=== PATIENT | female | born 1975 | race Hispanic/Latino ===

== ENCOUNTER → 2019-09-29 | Outpatient (CLI) | payer OTHER ==
--- NOTE | 2019-09-29 13:16 | US ---
EXAM DESCRIPTION: Extremity,Lower RT Arteries: Ultrasound. CLINICAL HISTORY: CELLULITIS COMPARISON: Duplex ultrasound evaluation of the right lower extremity deep venous system on this visit. TECHNIQUE: Doppler evaluation of the right lower extremity arterial flow waveforms and velocities. FINDINGS: Arterial waveforms in the right lower extremity are multiphasic from the right common femoral artery through the right dorsalis pedis artery.. . Comments: Normal range of decreasing velocities proximal to distal. IMPRESSION: Doppler evaluation of right lower extremity arterial systems showing no evidence of significant atherosclerotic occlusive disease. Electronically signed by: Khris Victor MD 09/29/2019 1:15 PM CDT
--- NOTE | 2019-09-29 13:19 | US ---
EXAM DESCRIPTION: Venous,Lower Extremity RT: ULTRASOUND. CLINICAL HISTORY: SEVERE SWELLING COMPARISON: Doppler ultrasound of right lower extremity arterial system on this visit. TECHNIQUE: Herrera-scale and doppler sonographic evaluation of the deep venous system of the right lower extremity. FINDINGS: Doppler evaluation shows normal color flow and normal phasicity and augmentation of the right common femoral vein, femoral vein, popliteal vein, greater saphenous vein, junction with the CFV. Also normal color flow and normal phasicity and augmentation of the peroneal, and posterior tibial vein. The right lower extremity deep veins were completely compressible; normal occlusion with transducer pressure. Herrera-scale survey showed no echogenic thrombus within these veins. IMPRESSION: 1. Duplex ultrasound evaluation of the right lower extremity deep venous system showing no evidence of thrombosis. Electronically signed by: Khris Victor MD 09/29/2019 1:17 PM CDT
== END ==
LOC: US 12:01
PROVIDERS: ATTEND Nurse Practitioner Family
DX: R22.41 Localized swelling, mass and lump, right lower limb (principal); L03.115 Cellulitis of right lower limb